=== PATIENT | male | born 1945 | race Caucasian/White ===

== ENCOUNTER 2017-05-01 19:31 | Emergency (ER) | payer MEDICARE ==
[2017-05-01 19:37] VITALS: BP 136/75; PULSE 55; RESP 20; TEMP 98.4; O2SAT 98
[2017-05-01] MEDS ORDERED: ASPI81CH7 CHEW (19:49)
[2017-05-01] MEDS ORDERED: VITA250T3 PO (19:49)
[2017-05-01] MEDS ORDERED: PRAV40TA PO (19:49)
--- NOTE | 2017-05-01 20:10 | PD ---
HPI Chief Complaint: Fall Time Seen by Provider: 19:50 Travel History International Travel<30 days: No Contact w/Intl Traveler<30days: No Traveled to known affect area: No History of Present Illness HPI This is a 71-year-old male here with a laceration to his left lower extremity caused by boat anchor. Injury occurred prior to arrival. He denies paresthesia or weakness in the extremities. Bleeding is well-controlled. He has mild pain at the site. No aggravating or alleviating factors. PFSH Past Medical History High Cholesterol: Yes Diminished Hearing: No Immunizations Current: Yes Tetanus Vaccination: < 5 Years Influenza Vaccination: Yes Past Surgical History Abdominal Surgery: Yes (BILATERAL HERNIA) Other Surgery: Yes (PILONIDAL CYST) Social History Alcohol Use: Yes (2-6 BEERS DAILY) Tobacco Use: No Substance Use: No Allergies-Medications (Allergen,Severity, Reaction): Coded Allergies: No Known Allergies (Verified Allergy, Unknown, 05/01/17) Reported Meds & Prescriptions Reported Meds & Active Scripts Active Reported Aspirin Children's (Aspirin) 81 Mg Chew 81 Mg CHEW DAILY Vitamin C (Ascorbic Acid) 250 Mg Tab 500 Mg PO DAILY Pravachol (Pravastatin) 40 Mg Tab 40 Mg PO DAILY Review of Systems Except as stated in HPI: all other systems reviewed are Neg General / Constitutional: No: Fever Eyes: No: Visual changes HENT: No: Headaches Cardiovascular: No: Chest Pain or Discomfort Respiratory: No: Shortness of Breath Gastrointestinal: No: Abdominal Pain Genitourinary: No: Dysuria Physical Exam Narrative GENERAL: Alert well-appearing 71-year-old male SKIN: Warm and dry. Approximately 5 cm superficial laceration to left anterior beyer. HEAD: Normocephalic. EYES:No injection or drainage. NECK: Supple MUSCULOSKELETAL: No cyanosis, or edema. See skin noted above No bony tenderness to the lower extremities. 2+ distal pulses. Normal sensation. Brisk cap refill. Data Data Last Documented VS Vital Signs Date Time Temp Pulse Resp B/P (MAP) Pulse Ox O2 Delivery O2 Flow Rate FiO2 05/01/17 19:37 98.4 55 20 136/75 (95) 98 MDM Medical Decision Making Medical Screen Exam Complete: Yes Emergency Medical Condition: Yes Differential Diagnosis Laceration, contusion, abrasions Narrative Course 71-year-old male here with laceration to left lower extremity. The extremity is neurovascularly intact. Wound was copiously irrigated. Laceration repair performed. prophylactic antibiotics doxycycline due to saltwater exposure. Strict return precautions were discussed. Tetanus immunization is up-to-date. She verbalizes understanding and agrees to plan Procedures Procedure Narrative LACERATION LOCATION: Left lower extremity LENGTH: 6 cm abrasion/laceration NUMBER OF STITCHES/VIVIEN: 5 REPAIR: The area of the laceration was prepped with Betadine and sterilely draped. The laceration was infiltrated with 1% lidocaine with epi. The wound was copiously irrigated and explored without evidence of foreign body, tendon injury or neurovascular injury. The wound was closed using 3-0 Ethilon. This was a single layer repair. A sterile dressing was applied. The patient was advised to keep the dressing clean and dry. Patient tolerated the procedure well. Diagnosis Primary Impression: Laceration of left lower extremity Qualified Codes: S81.812A - Laceration without foreign body, left lower leg, initial encounter Referrals: Primary Care Physician Additional Instructions: Sutures need to be removed in 7-10 days. Watch the area daily with soap and water. Keep the wound covered with a clean dry dressing. Return if he developed signs of infection such as increasing pain, fever, redness or drainage Scripts Doxycycline Hyclate (Doxycycline Hyclate) 100 Mg Cap 100 MG PO BID for Infection, #14 CAP 0 Refills Prov: Nikkie Bennett 05/01/17 Disposition: 01 DISCHARGE HOME Condition: Stable Nikkie Bennett May 01, 2017 20:10
[2017-05-01] MEDS ORDERED: DOXY100C PO (20:37)
== END 2017-05-01 20:51 | disposition home or self-care (01) ==
LOC: PHEFT 19:31
DX: S81.812A Laceration without foreign body, left lower leg, initial encounter (principal); E78.00 Pure hypercholesterolemia, unspecified; W45.8XXA Other foreign body or object entering through skin, initial encounter
CPT/HCPCS: 12002